=== PATIENT | female | born 1985 | race Caucasian/White ===

== ENCOUNTER 2018-08-12 07:55 | Inpatient (IN) | payer BC ==
--- NOTE | 2018-08-11 17:26 | PCM.LDHP ---
L&D History of Present Illness - General Date of Service: 08/12/18 Admit Problem/Dx: Admission Diagnosis/Problem Admission Diagnosis/Problem 08/11/18 17:05 Rosa is a 33-year-old 3 para 2002 female who is admitted on 2018 for elective induction of labor. Source of Information: Patient History Limitations: Reports: No Limitations - History of Present Illness Introduction:: The patient is a 33-year-old 3 para 2002 white female who is admitted for elective induction of labor. Her GIANNA is 08/17/2018 as determined by an ultrasound done at 7-0/7 weeks. It is supported by 3 other ultrasounds done on , 04/12/2018 and 06/03/2018. Cervix on last evaluation clinic was 3 cm, 90 % effaced, very soft, -2 station and mid position. Baby is in cephalic presentation. She's had good activity. Discussion is held patient has 2 artificial rupture membranes/Pitocin induction of labor. The procedure, risks, benefits, alternatives of care including allowing natural onset of labor all discussed with patient. She appears to understand and wishes to proceed. 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 Patient's last menstrual period was unknown. She had menarche at age 14. Cycles are somewhat irregular. Her delivery was included the followin. Female infant born 02/21/2010 at 41 weeks gestational age18 hours labor8 lbs. 10 oz.back extraction deliveryepiduralbaby's name is Katie. 2. Female on 02/08/201538-2/7 weeks gestational age7 lbs. 13 oz.spontaneous vaginal delivery. course: Patient was seen early in the at approximately 0/7 weeks gestational age. She had routine care. Her weight gain during the course of as well as from 104.2 pounds up to 136 pounds for 32 pound weight gain. Fundal height growth was appropriate. Vital signs remained stable throughout the course. Patient has had some anxiety during the course of but this is manageable. Choroid plexus initially seen on first anatomy ultrasound by the end of . She declined genetic testing. She declined flu shot. She desires epidural in labor and delivery. Group B strep is positive. She is candidate for antibiotic prophylaxis in labor and delivery. Hemoglobin A1c was normal at 5.1%. Patient refused 3-hour GTT. The lids were low early in the but on last evaluation there were 202,000. Patient had an abnormal Pap smear with low-grade squamous intraepithelial lesion. Colposcopy was performed. No biopsies were obtained. Plan is to evaluate after . Laboratory testing and shows blood to be a positive. Antibody screen is negative. First hemoglobin was 12.2 g/dL. Platelets were 167,000. Pap smear showed low-grade squamous intraepithelial lesion. Rubella titer showed immune status. RPR is nonreactive. Hepatitis B and HIV assays are both negative. Second trimester labs showed a 1 hour GTT of 132. Patient declined 3 or gtt. Platelets at that time 151. Platelet assessment on 07/27/2018 was 202, 000. Group B strep screen was positive. Allergies: None. Medications: 1. Sertraline 50 mg 1 by mouth Q OD 2. vitamins 1 daily Past medical history: 1. Normal spontaneous vaginal delivery 2 2. History of frequent UTIs 3. History of kidney stones 4. History of anxiety on meds Past surgical history: Unremarkable Family history daughter with patent material 6. 3/2 siblings uncertain health history. Mother has had some mini strokes. She is diet-controlled diabetic. She also has hypertension and hyperlipidemia. Father is healthy but patient doesn't know his full medical status. Maternal grandmother with type 1 diabetes secondary to stroke. Maternal grandfather deceasedcause unknown. Paternal grandmother unknown.Paternal grandfather causes unknown. Patient reports one maternal aunt with lupus. She does not know of any anesthesia, bleeding, , blood clotting problems noted in the family. Social history: Patient is . 's name is Hema Nunes. She does not use any significant most alcohol, drugs or tobacco. They live in [place]. She is a high school graduate. She is a [id number]-[id number] mom. Review of systems: In general patient has no complaints. Skin: Negative Lungs: No infectious symptoms or shortness of breath Cardiovascular: No chest pain or exercise intolerance Breasts: No lumps, changes in size, pain, dimpling, discharge or axillary or supraclavicular concerns. GI: Negative : Negative. Normal body habitus changes . Baby has been active. Some contractions noted last evening Musculoskeletal: Negative Neurological: Negative In general the patient is well-developed, well-nourished, pleasant female of stated age in no acute distress. Skin is warm dry without lesions. HEENT, neck and back within normal limits. Lungs are clear with good breath sounds in all lung bhat. Cardiovascular exam shows regular and rhythm without murmurs. Abdomen is consistent with term . Baby in vertex presentation by ultrasound and Kel maneuver. Uterus is soft, nontender. No inguinal lymphadenopathy or hernias are noted. Genital as per history of present illness Extremities and neurological exam are grossly within normal limits. Bedside transabdominal ultrasound is done because head is not felt to be nestled against the cervix well. Baby is in vertex presentation but has a positive pelvis and hand is front of the head. It appears to be amenable to Pitocin stimulation uterus to bring the head down. - Related Data Allergies/Adverse Reactions: Allergies Allergy/AdvReac Type Severity Reaction Status Date / Time No Known Allergies Allergy Verified 02/07/15 15:48 Home Medications: Home Meds Sertraline [Zoloft] 100 mg PO DAILY 08/12/18 [History] Past Medical History - Past Health History Medical/Surgical History: Denies Medical/Surgical History Other Genitourinary History: HX of kidney stones H&P Review of Systems - Review of Systems: Review Of Systems: See Below L&D Exam - Exam Exam: See Below - Patient Data Result Diagrams: 08/12/18 08:50 Problem List Initiated/Reviewed/Updated: Yes Assessment/Plan Comment:: 1. 39-3/7 week intrauterine , admitted for elective induction of labor 2. Group B strep positive status. Patient candidate for ampicillin prophylaxis in labor and delivery 3. Desires epidural in labor and delivery 4. History of previously decreased platelets now normal processes (202,000) on last evaluation 07/27/2018. 5. Patient plans to breast-feed 6. Rubella immune 7. RPR nonreactive Plan: 1. As the baby's head is not well engaged and pelvis will initiate Pitocin, bring the baby's head down and then do artificial rupture membranes augmentation. Procedures discussed with patient. She agrees to proceed. 2. Ampicillin reflexes per protocol for group B strep positive status. 3. Support nursing decision 4. Routine labor care.
[2018-08-12] MEDS ORDERED: Nalbuphine 20 MG/ML 1 ML Syringe IVPUSH PRN (08:42)
[2018-08-12] MEDS ORDERED: Ondansetron 4 MG/2 ML SDV IVPUSH PRN (08:42)
[2018-08-12] MEDS ORDERED: Sodium Chloride 0.9% 10 ML Syringe FLUSH PRN (08:42)
[2018-08-12] MEDS ORDERED: Lidocaine 1% 50 ML MDV INJECT ONE (08:42)
[2018-08-12] MEDS ORDERED: diphenhydrAMINE 50 MG/ML SDV IVPUSH PRN (08:43)
[2018-08-12] MEDS ORDERED: fentaNYL 100 MCG/2 ML SDV EPIDUR PRN (08:43)
[2018-08-12] MEDS ORDERED: ePHEDrine 50 MG/ML SDV IVPUSH PRN (08:43)
[2018-08-12] MEDS ORDERED: Oxytocin/Lactated Ringers 10 UNIT/1,000 ML BAG IV SCH ×2 (08:45)
[2018-08-12] MEDS ORDERED: Bupivacaine/fentaNYL/NS 100 ML Bag EPIDUR SCH (08:45)
[2018-08-12] MEDS ORDERED: Ampicillin 2 GM AdvVial IV ONE (08:56)
[2018-08-12] MEDS ORDERED: Sodium Chloride 0.9% 100 ML ONE (08:57)
[2018-08-12] MEDS ORDERED: fentaNYL/Bupivacaine-NS 2 MCG/ML-0.125%/PF 100 ML Bag EP SCH (08:59)
[2018-08-12] MEDS ORDERED: Ampicillin 2 GM in Sodium Chloride 0.9% 100 ML IV ONE (09:00)
[2018-08-12] MEDS: Lactated Ringers 1,000 ML IV SCH ×2 (09:54→12:07)
--- NOTE | 2018-08-12 12:02 | PCM.PREANE ---
Preanesthetic Assessment - Anesthesia/Transfusion/Family Hx Anesthesia History: Prior Anesthesia Without Reaction Family History of Anesthesia Reaction: No Transfusion History: No Prior Transfusion(s) - Review of Systems General: Fatigue Pulmonary: No Symptoms Cardiovascular: No Symptoms Gastrointestinal: Abdominal Pain (labor contractions) Neurological: No Symptoms Other: Reports: Anxiety - Physical Assessment Pulse: 66 O2 Sat by Pulse Oximetry: 97 Respiratory Rate: 14 Blood Pressure: 123/88 Temperature: 36.3 C Vital Signs: Last Vital Signs Temp 35.9 C 08/12/18 08:35 Pulse 66 08/12/18 08:35 Resp 14 08/12/18 08:35 BP 123/83 08/12/18 08:35 Pulse Ox Height: 1.63 m Weight: 62.46 kg ASA Class: 2 Mental Status: Alert & Oriented x3 Airway Class: Mallampati = 1 Dentition: Reports: Normal Dentition Thyro-Mental Finger Breadths: 3 Mouth Opening Finger Breadths: 3 ROM/Head Extension: Full Lungs: Clear to Auscultation, Normal Respiratory Effort Cardiovascular: Regular Rate, Regular Rhythm - Lab Values: Laboratory Last Values WBC 11.33 K/mm3 (3.98-10.04) H 08/12/18 08:50 RBC 4.32 M/mm3 (3.98-5.22) 08/12/18 08:50 Hgb 10.8 gm/L (11.2-15.7) L 08/12/18 08:50 Hct 34.2 % (34.1-44.9) 08/12/18 08:50 MCV 79.2 fl (79.4-94.8) L 08/12/18 08:50 MCH 25.0 pg (25.6-32.2) L 08/12/18 08:50 MCHC 31.6 g/dl (32.2-35.5) L 08/12/18 08:50 RDW Std Deviation 42.5 fL (36.4-46.3) 08/12/18 08:50 Plt Count 197 K/mm3 (182-369) 08/12/18 08:50 MPV 11.7 fl (9.4-12.3) 08/12/18 08:50 Neut % (Auto) 84.8 % (34.0-71.1) H 08/12/18 08:50 Lymph % (Auto) 10.5 % (19.3-51.7) L 08/12/18 08:50 [place] % (Auto) 4.0 % (4.7-12.5) L 08/12/18 08:50 Eos % (Auto) 0.2 (0.7-5.8) L 08/12/18 08:50 Baso % (Auto) 0.2 % (0.1-1.2) 08/12/18 08:50 Neut # (Auto) 9.62 K/mm3 (1.56-6.13) H 08/12/18 08:50 Lymph # (Auto) 1.19 K/mm3 (1.18-3.74) 08/12/18 08:50 [place] # (Auto) 0.45 K/mm3 (0.24-0.36) H 08/12/18 08:50 Eos # (Auto) 0.02 K/mm3 (0.04-0.36) L 08/12/18 08:50 Baso # (Auto) 0.02 K/mm3 (0.01-0.08) 08/12/18 08:50 - Allergies Allergies/Adverse Reactions: Allergies Allergy/AdvReac Type Severity Reaction Status Date / Time No Known Allergies Allergy Verified 02/07/15 15:48 - Anesthesia Plan Pre-Op Medication Ordered: None - Acknowledgements Anesthesia Type Planned: Epidural Pt an Appropriate Candidate for the Planned Anesthesia: Yes Alternatives and Risks of Anesthesia Discussed w Pt/Guardian: Yes Pt/Guardian Understands and Agrees with Anesthesia Plan: Yes PreAnesthesia Questionnaire - Past Health History Medical/Surgical History: Denies Medical/Surgical History Gastrointestinal History: Reports: GERD Other Genitourinary History: HX of kidney stones 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: Endocrine/Metabolic History: Reports: Other (See Below) Other Endocrine/Metabolic History: Intermittent episodes of hypoglycemia per patient Hematologic History: Reports: Anemia - Past Surgical History Female Surgical History: Reports: None Endocrine Surgical History: Reports: None - SUBSTANCE USE Smoking Status *Q: Never Smoker Second Hand Smoke Exposure: No Recreational Drug Use History: No - HOME MEDS Home Medications: Home Meds Sertraline [Zoloft] 100 mg PO DAILY 08/12/18 [History] - CURRENT (IN HOUSE) MEDS Current Meds: Current Medications Diphenhydramine HCl (Benadryl) 25 mg IVPUSH Q6H PRN PRN Reason: Itching Ephedrine Sulfate (Ephedrine Sulfate) 5 mg IVPUSH ASDIRECTED PRN PRN Reason: HYPOTENTSION Fentanyl (Sublimaze) 100 mcg EPIDUR Q3H PRN PRN Reason: Pain Last Admin: 08/12/18 11:53 Dose: 100 mcg Fentanyl/Bupivacaine HCl (Nqnjrlhg-Lyhik-Hy 2 Mcg/Ml-0.125%) 100 ml EP ASDIRECTED MIESHA Last Admin: 08/12/18 11:54 Dose: 100 ml Ampicillin Sodium 1 gm/ Sodium (Chloride) 100 mls @ 200 mls/hr IV Q4H MIESHA Lactated Ringer's (Ringers, Lactated) 1,000 mls @ 100 mls/hr IV ASDIRECTED MIESHA Last Admin: 08/12/18 09:54 Dose: 100 mls/hr Oxytocin/Lactated Ringer's (Pitocin In Lr 10 Units/1,000 Ml) 10 unit in 1,000 mls @ 12 mls/hr IV TITRATE MIESHA; Protocol Last Titration: 08/12/18 10:45 Dose: 6 munits/min, 36 mls/hr Oxytocin/Lactated Ringer's (Pitocin In Lr 10 Units/1,000 Ml) 10 unit in 1,000 mls @ 100 mls/hr IV .CONTINUOUS MIESHA; Protocol Nalbuphine HCl (Nubain) 10 mg IVPUSH Q2H PRN PRN Reason: pain Ondansetron HCl (Zofran) 4 mg IVPUSH Q4H PRN PRN Reason: Nausea/Vomiting Sodium Chloride (Saline Flush) 10 ml FLUSH ASDIRECTED PRN PRN Reason: Keep Vein Open Discontinued Medications Ampicillin Sodium (Ampicillin) Confirm Administered Dose 4 gm IV .STK-MED ONE Stop: 08/12/18 08:57 Fentanyl/Bupivacaine HCl (Fentanyl/Bupivacaine/Ns 2 Mcg-0.125% 100 Ml) 100 ml EPIDUR ASDIRECTED MIESHA Ampicillin Sodium 2 gm/ Sodium (Chloride) 100 mls @ 200 mls/hr IV ONETIME ONE Stop: 08/12/18 09:29 Last Admin: 08/12/18 09:01 Dose: 200 mls/hr Sodium Chloride (Normal Saline) Confirm Administered Dose 100 mls @ as directed .ROUTE .STK-MED ONE Stop: 08/12/18 08:58 Lidocaine HCl (Xylocaine 1%) 50 ml INJECT ONETIME ONE Stop: 08/12/18 08:43
[2018-08-12] MEDS ORDERED: Ampicillin 1 GM in Sodium Chloride 0.9% 100 ML IV SCH (13:00)
--- NOTE | 2018-08-12 13:17 | PCM.SN ---
- Free Text/Narrative Note: Delivery note: Rosa is a 33-year-old 3 now para 3003 female who is admitted this a.m. for elective induction of labor she underwent Pitocin induction with artificial rupture membranes augmentation. She progressed quickly to complete cervical dilation. At 1238 hrs. she had one contraction with which she pushed and delivered a viable, zelaya, female with a weight of 3020 g (6 lbs. 11 oz.), and at our of 8 and 9 and length of 19.5 inches. The cord was allowed to pulsate 1 minute and then was clamped 2 and cut by the baby's father. Baby was placed on mom's abdomen. Nose and mouth were bulb suctioned. Cord blood was obtained. The patient received Pitocin IV facilitate increase uterine tone and reduce risk of bleeding. The perineum was noted to be intact and no sutures were necessary. The placenta delivered at 1243 hrs. in a [place] presentation. It appeared intact and complete and was discarded per patient desire. Umbilical cord had 3 vessels. Estimated blood loss was 100 mL. Patient plans to breast-feed. Condition: Good
[2018-08-12] MEDS ORDERED: Witch Hazel Medicated Pads 100/Jar TOP PRN (14:32)
[2018-08-12] MEDS ORDERED: Docusate Sodium 100 MG Cap PO PRN (14:32)
[2018-08-12] MEDS ORDERED: Lanolin 100% Cream 7 GM Tube TOP PRN (14:32)
[2018-08-12] MEDS ORDERED: Benzocaine/Menthol 20%-0.5% Spray 56 GM Canister TOP PRN (14:32)
[2018-08-12] MEDS ORDERED: Acetaminophen 325 MG Tab PO PRN (14:32)
[2018-08-12] MEDS: Ibuprofen 600 MG Tab PO PRN ×2 (17:03→22:38)
[2018-08-12] MEDS ORDERED: Bupivacaine 0.25% 10 ML SDV ONE (22:00)
[2018-08-13] MEDS: Ibuprofen 600 MG Tab PO PRN ×4 (04:05→22:05)
--- NOTE | 2018-08-13 08:48 | PCM.PNPP ---
- General Info Date of Service: 08/13/18 Functional Status: Reports: Pain Controlled - Review of Systems General: Reports: No Symptoms HEENT: Reports: No Symptoms Pulmonary: Reports: No Symptoms Cardiovascular: Reports: No Symptoms Gastrointestinal: Reports: No Symptoms Genitourinary: Reports: No Symptoms Musculoskeletal: Reports: No Symptoms Skin: Reports: No Symptoms Neurological: Reports: No Symptoms Psychiatric: Reports: No Symptoms - General Info Date of Service: 08/13/18 - Patient Data Vital Signs - Most Recent: Last Vital Signs Temp 36.6 C 08/13/18 04:08 Pulse 73 08/13/18 04:08 Resp 14 08/13/18 04:08 BP 120/74 08/13/18 04:08 Pulse Ox 100 08/13/18 04:08 Weight - Most Recent: 62.46 kg I&O - Last 24 Hours: Intake & Output 08/12/18 08/13/18 08/13/18 22:59 06:59 14:59 Intake Total 1000 Output Total 350 Balance 650 Lab Results - Last 24 Hours: Laboratory Results - last 24 hr 08/12/18 Range/Units 08:50 WBC 11.33 H (3.98-10.04) K/mm3 RBC 4.32 (3.98-5.22) M/mm3 Hgb 10.8 L (11.2-15.7) gm/L Hct 34.2 (34.1-44.9) % MCV 79.2 L (79.4-94.8) fl MCH 25.0 L (25.6-32.2) pg MCHC 31.6 L (32.2-35.5) g/dl RDW Std Deviation 42.5 (36.4-46.3) fL Plt Count 197 (182-369) K/mm3 MPV 11.7 (9.4-12.3) fl Neut % (Auto) 84.8 H (34.0-71.1) % Lymph % (Auto) 10.5 L (19.3-51.7) % [place] % (Auto) 4.0 L (4.7-12.5) % Eos % (Auto) 0.2 L (0.7-5.8) Baso % (Auto) 0.2 (0.1-1.2) % Neut # (Auto) 9.62 H (1.56-6.13) K/mm3 Lymph # (Auto) 1.19 (1.18-3.74) K/mm3 [place] # (Auto) 0.45 H (0.24-0.36) K/mm3 Eos # (Auto) 0.02 L (0.04-0.36) K/mm3 Baso # (Auto) 0.02 (0.01-0.08) K/mm3 Med Orders - Current: Current Medications Acetaminophen (Tylenol) 650 mg PO Q4H PRN PRN Reason: mild pain or fever Benzocaine/Menthol (Dermoplast Pain Relief Mallory) 0 gm TOP ASDIRECTED PRN PRN Reason: Perineal Comfort Measure Docusate Sodium (Colace) 100 mg PO BID PRN PRN Reason: Constipation Emollient Ointment (Lansinoh Hpa) 0 gm TOP ASDIRECTED PRN PRN Reason: Sore Nipples Ibuprofen (Motrin) 600 mg PO Q4H PRN PRN Reason: Mild pain or fever Last Admin: 08/13/18 04:05 Dose: 600 mg Prenat Multivit/[place]/Iron/Folic Ac ( Plus Iron) 1 each PO DAILY [facility] Sertraline HCl (Zoloft) 50 mg PO DAILY [facility] [place] (Tucks) 1 pad TOP ASDIRECTED PRN PRN Reason: Hemorrhoid pain Discontinued Medications Ampicillin Sodium (Ampicillin) Confirm Administered Dose 4 gm IV .STK-MED ONE Stop: 08/12/18 08:57 Last Admin: 08/12/18 17:27 Dose: Not Given Diphenhydramine HCl (Benadryl) 25 mg IVPUSH Q6H PRN PRN Reason: Itching Ephedrine Sulfate (Ephedrine Sulfate) 5 mg IVPUSH ASDIRECTED PRN PRN Reason: HYPOTENTSION Fentanyl (Sublimaze) 100 mcg EPIDUR Q3H PRN PRN Reason: Pain Last Admin: 08/12/18 11:53 Dose: 100 mcg Fentanyl/Bupivacaine HCl (Fentanyl/Bupivacaine/Ns 2 Mcg-0.125% 100 Ml) 100 ml EPIDUR ASDIRECTED [facility] Fentanyl/Bupivacaine HCl (Viomynuq-Xbmsc-Rq 2 Mcg/Ml-0.125%) 100 ml EP ASDIRECTED [facility] Last Admin: 08/12/18 11:54 Dose: 100 ml Ampicillin Sodium 2 gm/ Sodium (Chloride) 100 mls @ 200 mls/hr IV ONETIME ONE Stop: 08/12/18 09:29 Last Admin: 08/12/18 09:01 Dose: 200 mls/hr Ampicillin Sodium 1 gm/ Sodium (Chloride) 100 mls @ 200 mls/hr IV Q4H MIESHA Last Admin: 08/12/18 17:28 Dose: Not Given Lactated Ringer's (Ringers, Lactated) 1,000 mls @ 100 mls/hr IV ASDIRECTED MIESHA Last Admin: 08/12/18 12:07 Dose: 100 mls/hr Oxytocin/Lactated Ringer's (Pitocin In Lr 10 Units/1,000 Ml) 10 unit in 1,000 mls @ 12 mls/hr IV TITRATE MIESHA; Protocol Last Titration: 08/12/18 10:45 Dose: 6 munits/min, 36 mls/hr Oxytocin/Lactated Ringer's (Pitocin In Lr 10 Units/1,000 Ml) 10 unit in 1,000 mls @ 100 mls/hr IV .CONTINUOUS MIESHA; Protocol Last Admin: 08/12/18 15:33 Dose: 100 mls/hr Sodium Chloride (Normal Saline) Confirm Administered Dose 100 mls @ as directed .ROUTE .STK-MED ONE Stop: 08/12/18 08:58 Last Admin: 08/12/18 17:27 Dose: Not Given Lidocaine HCl (Xylocaine 1%) 50 ml INJECT ONETIME ONE Stop: 08/12/18 08:43 Last Admin: 08/12/18 17:27 Dose: Not Given Nalbuphine HCl (Nubain) 10 mg IVPUSH Q2H PRN PRN Reason: pain Ondansetron HCl (Zofran) 4 mg IVPUSH Q4H PRN PRN Reason: Nausea/Vomiting Sodium Chloride (Saline Flush) 10 ml FLUSH ASDIRECTED PRN PRN Reason: Keep Vein Open - Interaction Support Person: - Recovery Exam Fundal Tone: Firm Fundal Level: At Umbilicus Fundal Placement: Midline Lochia Amount: Scant, Small Lochia Color: Rubra/Red Perineum Description: Intact, Minimal Bruising/Swelling Bladder Status: Nonpalpable Urinary Elimination: Voided - Exam General: Alert, Oriented HEENT: Pupils Equal Neck: Supple Lungs: Clear to Auscultation, Normal Respiratory Effort Cardiovascular: Regular Rate, Regular Rhythm GI/Abdominal Exam: Normal Bowel Sounds, Soft, Non-Tender, No Organomegaly, No Distention, No Abnormal Bruit, No Mass, Pelvis Stable Extremities: Normal Inspection, Normal Range of Motion, Non-Tender, No Pedal Edema, Normal Capillary Refill Skin: Warm, Dry, Intact Wound/Incisions: Healing Well Neurological: No New Focal Deficit Psy/Mental Status: Alert, Normal Affect, Normal Mood - Problem List Review Problem List Initiated/Reviewed/Updated: Yes - Assessment Assessment:: Term delivery. Only received one dose of antibiotics and therefore will need to stay until tomorrow. No other issues. Likely discharge tomorrow. - Plan Plan:: 1. 39-3/7 week intrauterine , admitted for elective induction of labor 2. Group B strep positive status. Patient candidate for ampicillin prophylaxis in labor and delivery 3. Desires epidural in labor and delivery 4. History of previously decreased platelets now normal processes (202,000) on last evaluation 07/27/2018. 5. Patient plans to breast-feed 6. Rubella immune 7. RPR nonreactive Plan: 1. As the baby's head is not well engaged and pelvis will initiate Pitocin, bring the baby's head down and then do artificial rupture membranes augmentation. Procedures discussed with patient. She agrees to proceed. 2. Ampicillin reflexes per protocol for group B strep positive status. 3. Support nursing decision 4. Routine labor care.
[2018-08-13] MEDS ORDERED: Sertraline 50 MG Tab PO SCH ×2 (09:00)
[2018-08-13] MEDS ORDERED: Prenatal Multivitamin with Calcium/Folic Acid/Iron Tab PO SCH (09:00)
[2018-08-13] MEDS ORDERED: DOXYLAMINE SUCCINATE PO SCH (21:00)
--- NOTE | 2018-08-13 23:12 | PCM48HPAN ---
Post Anesthesia Note - EVALUATION WITHIN 48HRS OF ANESTHETIC Vital Signs in Normal Range: Yes Patient Participated in Evaluation: Yes Respiratory Function Stable: Yes Airway Patent: Yes Cardiovascular Function Stable: Yes Hydration Status Stable: Yes Pain Control Satisfactory: Yes Nausea and Vomiting Control Satisfactory: Yes Mental Status Recovered: Yes
[2018-08-14] MEDS: Ibuprofen 600 MG Tab PO PRN (05:55)
--- NOTE | 2018-08-14 08:47 | PCM.DCSUM1 ---
Discharge Summary - Hospital Course Diagnosis: Stroke: No - Discharge Data Discharge Date: 08/14/18 Discharge Disposition: Home, Self-Care 01 Condition: Good - Patient Instructions Diet: Usual Diet as Tolerated Activity: No Strenuous Activities Driving: May Drive Today Showering/Bathing: May Shower Notify Provider of: Fever, Increased Pain, Swelling and Redness, Drainage, Nausea and/or Vomiting - Discharge Plan *PRESCRIPTION DRUG MONITORING PROGRAM REVIEWED*: No *COPY OF PRESCRIPTION DRUG MONITORING REPORT IN PATIENT JEAN-PIERRE: No Home Medications: Home Meds Sertraline [Zoloft] 100 mg PO DAILY 08/12/18 [History] - Discharge Summary/Plan Comment DC Time >30 min.: No - General Info Date of Service: 08/14/18 Functional Status: Reports: Pain Controlled - Review of Systems General: Reports: No Symptoms HEENT: Reports: No Symptoms Pulmonary: Reports: No Symptoms Cardiovascular: Reports: No Symptoms Gastrointestinal: Reports: No Symptoms Genitourinary: Reports: No Symptoms Musculoskeletal: Reports: No Symptoms Skin: Reports: No Symptoms Neurological: Reports: No Symptoms Psychiatric: Reports: No Symptoms - Patient Data Vitals - Most Recent: Last Vital Signs Temp 36.7 C 08/14/18 05:30 Pulse 58 L 08/14/18 05:22 Resp 17 08/14/18 05:30 BP 109/74 08/14/18 05:22 Pulse Ox 100 08/14/18 05:22 Weight - Most Recent: 62.46 kg Med Orders - Current: Current Medications Acetaminophen (Tylenol) 650 mg PO Q4H PRN PRN Reason: mild pain or fever Benzocaine/Menthol (Dermoplast Pain Relief [place]) 0 gm TOP ASDIRECTED PRN PRN Reason: Perineal Comfort Measure Docusate Sodium (Colace) 100 mg PO BID PRN PRN Reason: Constipation Last Admin: 08/13/18 13:36 Dose: 100 mg Emollient Ointment (Lansinoh Hpa) 0 gm TOP ASDIRECTED PRN PRN Reason: Sore Nipples Last Admin: 08/14/18 05:54 Dose: 1 tube Ibuprofen (Motrin) 600 mg PO Q4H PRN PRN Reason: Mild pain or fever Last Admin: 08/14/18 05:55 Dose: 600 mg Doxylamine Succinate (10 Mg Tab Ptom) 0 each PO BEDTIME MIEHSA Last Admin: 08/13/18 21:08 Dose: 2 each Sertraline 100 Mg (Tab Ptom) 0 each PO BEDTIME MIESHA Last Admin: 08/13/18 21:11 Dose: 1 each Prenat Multivit/[place]/Iron/Folic Ac ( Plus Iron) 1 each PO DAILY MIESHA Last Admin: 08/13/18 09:10 Dose: 1 each Tony Dalal (Tucks) 1 pad TOP ASDIRECTED PRN PRN Reason: Hemorrhoid pain Discontinued Medications Ampicillin Sodium (Ampicillin) Confirm Administered Dose 4 gm IV .STK-MED ONE Stop: 08/12/18 08:57 Last Admin: 08/12/18 17:27 Dose: Not Given Diphenhydramine HCl (Benadryl) 25 mg IVPUSH Q6H PRN PRN Reason: Itching Ephedrine Sulfate (Ephedrine Sulfate) 5 mg IVPUSH ASDIRECTED PRN PRN Reason: HYPOTENTSION Fentanyl (Sublimaze) 100 mcg EPIDUR Q3H PRN PRN Reason: Pain Last Admin: 08/12/18 11:53 Dose: 100 mcg Fentanyl/Bupivacaine HCl (Fentanyl/Bupivacaine/Ns 2 Mcg-0.125% 100 Ml) 100 ml EPIDUR ASDIRECTED MIESHA Fentanyl/Bupivacaine HCl (Nqrjxvcu-Endyc-Vo 2 Mcg/Ml-0.125%) 100 ml EP ASDIRECTED MIESHA Last Admin: 08/12/18 11:54 Dose: 100 ml Ampicillin Sodium 2 gm/ Sodium (Chloride) 100 mls @ 200 mls/hr IV ONETIME ONE Stop: 08/12/18 09:29 Last Admin: 08/12/18 09:01 Dose: 200 mls/hr Ampicillin Sodium 1 gm/ Sodium (Chloride) 100 mls @ 200 mls/hr IV Q4H MIESHA Last Admin: 08/12/18 17:28 Dose: Not Given Lactated Ringer's (Ringers, Lactated) 1,000 mls @ 100 mls/hr IV ASDIRECTED MIESHA Last Admin: 08/12/18 12:07 Dose: 100 mls/hr Oxytocin/Lactated Ringer's (Pitocin In Lr 10 Units/1,000 Ml) 10 unit in 1,000 mls @ 12 mls/hr IV TITRATE MIESHA; Protocol Last Titration: 08/12/18 10:45 Dose: 6 munits/min, 36 mls/hr Oxytocin/Lactated Ringer's (Pitocin In Lr 10 Units/1,000 Ml) 10 unit in 1,000 mls @ 100 mls/hr IV .CONTINUOUS MIESHA; Protocol Last Admin: 08/12/18 15:33 Dose: 100 mls/hr Sodium Chloride (Normal Saline) Confirm Administered Dose 100 mls @ as directed .ROUTE .STK-MED ONE Stop: 08/12/18 08:58 Last Admin: 08/12/18 17:27 Dose: Not Given Lidocaine HCl (Xylocaine 1%) 50 ml INJECT ONETIME ONE Stop: 08/12/18 08:43 Last Admin: 08/12/18 17:27 Dose: Not Given Nalbuphine HCl (Nubain) 10 mg IVPUSH Q2H PRN PRN Reason: pain Ondansetron HCl (Zofran) 4 mg IVPUSH Q4H PRN PRN Reason: Nausea/Vomiting Sertraline 100 Mg (Tab Ptom) 0 each PO DAILY MIESHA Sertraline HCl (Zoloft) 50 mg PO DAILY MIESHA Sertraline HCl (Zoloft) 100 mg PO DAILY MIESHA Sodium Chloride (Saline Flush) 10 ml FLUSH ASDIRECTED PRN PRN Reason: Keep Vein Open - Exam General: Reports: Alert, Oriented HEENT: Reports: Pupils Equal, Pupils Reactive, EOMI, Mucous Membr. Moist/[place] Neck: Reports: Supple Lungs: Reports: Clear to Auscultation, Normal Respiratory Effort Cardiovascular: Reports: Regular Rate, Regular Rhythm GI/Abdominal Exam: Normal Bowel Sounds, Soft, Non-Tender, No Organomegaly, No Distention, No Abnormal Bruit, No Mass, Pelvis Stable Rectal (Female) Exam: Normal Exam Back Exam: Reports: Normal Inspection, Full Range of Motion Extremities: Normal Inspection, Normal Range of Motion, Non-Tender, No Pedal Edema, Normal Capillary Refill Skin: Reports: Warm, Dry, Intact Wound/Incisions: Reports: Healing Well Neurological: Reports: No New Focal Deficit Psy/Mental Status: Reports: Alert, Normal Affect, Normal Mood
[2018-08-14] MEDS ORDERED: Calcium Carbonate 500 MG Tab.Chew PO PRN (08:48)
[2018-08-14 10:51] VITALS: BP 118/74
== END 2018-08-14 12:15 | disposition home or self-care (01) | DRG 560 ==
LOC: JD.OB 07:55 → UNDOADMOB 07:55 → JD.OB 12:38 → OBSVTOIN 12:38 → JD.OB 12:39
PROVIDERS: ADMIT Obstetrics & Gynecology; ATTEND Obstetrics & Gynecology
PROC: 3E033VJ Introduction of Other Hormone into Peripheral Vein, Percutaneous Approach (ICD-10-PCS; principal; 2018-08-12)
PROC: 10907ZC Drainage of Amniotic Fluid, Therapeutic from Products of Conception, Via Natural or Artificial Opening (ICD-10-PCS; principal; 2018-08-12)
PROC: 10E0XZZ Delivery of Products of Conception, External Approach (ICD-10-PCS; principal; 2018-08-12)
PROC: 6A550ZT Pheresis of Cord Blood Stem Cells, Single (ICD-10-PCS; principal; 2018-08-12)
PROC: 00HU33Z Insertion of Infusion Device into Spinal Canal, Percutaneous Approach (ICD-10-PCS; 2018-08-12)
PROC: 3E0R3BZ Introduction of Anesthetic Agent into Spinal Canal, Percutaneous Approach (ICD-10-PCS; 2018-08-12)
DX: O99.824 Streptococcus B carrier state complicating childbirth (principal); O99.344 Other mental disorders complicating childbirth; F41.9 Anxiety disorder, unspecified; Z37.0 Single live birth; Z3A.39 39 weeks gestation of pregnancy; O99.62 Diseases of the digestive system complicating childbirth; K21.9 Gastro-esophageal reflux disease without esophagitis; Z87.440 Personal history of urinary (tract) infections; Z87.442 Personal history of urinary calculi
CPT/HCPCS: 36415; 59025; 59409; 85025; 86592; A9270-GY; J0290; J2590; J3010; J3490; J7030; J7120

== ENCOUNTER 2018-12-31 14:57 | Emergency (ER) | payer BC ==
[2018-12-31 15:07] VITALS: BP 125/83
[2018-12-31] MEDS: LORazepam 2 MG/ML SDV IVPUSH ONE (15:12)
[2018-12-31] MEDS: Sodium Chloride 0.9% 1,000 ML IV SCH (15:13)
--- NOTE | 2018-12-31 16:24 | EDM.PDOC ---
ED HPI GENERAL MEDICAL PROBLEM - General Chief Complaint: Neurological Problem Stated Complaint: [facility] Time Seen by Provider: 12/31/18 15:01 Source of Information: Reports: Patient, EMS, Family History Limitations: Reports: Altered Mental Status - History of Present Illness INITIAL COMMENTS - FREE TEXT/NARRATIVE: The patient presents by [facility] for a seizure. The patient had a 30 second tonic clonic seizure that was witnessed by her . When EMS arrived they patient was post ictal and confused. She was combative. She had a baby in August and in September she had a seizure while driving to go shopping. She was with a friend and she was driving and she was not acting right so her friend had her truss puller helper and she had a tonic clonic seizure that lasted about 30 seconds. She saw Tracy Jackson in our clinic and she ordered an MRI that was normal. The patient was on zoloft at that time and she would not take int consistently. It was thought maybe that was the cause of her seizure. She is still not taking her zoloft consistently. She is not getting much sleep. She is breast feeding and her young child is not sleeping very well. Onset: Sudden Duration: Minutes: Location: Reports: Generalized Severity: Moderate Improves with: Reports: None Worsens with: Reports: None Associated Symptoms: Reports: No Other Symptoms Headache Pain Score (Numeric/FACES): 10 - Related Data Allergies Allergy/AdvReac Type Severity Reaction Status Date / Time No Known Allergies Allergy Verified 02/07/15 15:48 Home Meds: Home Meds Sertraline [Zoloft] 100 mg PO DAILY 08/12/18 [History] levETIRAcetam [Keppra] 250 mg PO BID #14 tablet 12/31/18 [Rx] levETIRAcetam [Keppra] 500 mg PO BID #60 tab 12/31/18 [Rx] Past Medical History - Past Health History Medical/Surgical History: Denies Medical/Surgical History Gastrointestinal History: Reports: GERD Other Genitourinary History: HX of kidney stones PAD HAND History: Reports: Psychiatric History: Reports: Depression Other Psychiatric History: zoloft prescribed by OB doctor Endocrine/Metabolic History: Reports: Other (See Below) Other Endocrine/Metabolic History: Intermittent episodes of hypoglycemia per patient Hematologic History: Reports: Anemia - Past Surgical History Female Surgical History: Reports: None Endocrine Surgical History: Reports: None Social & Family History - Family History Cardiac: Reports: Hypertension OBGYN: Reports: None Neurological: Reports: CVA Endocrine/Metabolic: Reports: Diabetes, type II - Tobacco Use Smoking Status *Q: Unknown Ever Smoked - Caffeine Use Caffeine Use: Reports: Other Other Caffeine Use: unknown - Recreational Drug Use Other Recreational Drug Type: unknown ED ROS GENERAL - Review of Systems Review Of Systems: See Below Constitutional: Reports: No Symptoms HEENT: Reports: No Symptoms Respiratory: Reports: No Symptoms Cardiovascular: Reports: No Symptoms Endocrine: Reports: No Symptoms GI/Abdominal: Reports: No Symptoms : Reports: No Symptoms Musculoskeletal: Reports: No Symptoms Skin: Reports: No Symptoms Neurological: Reports: Confusion - Physical Exam Exam: See Below Exam Limited By: Altered Mental Status General Appearance: Alert, No Apparent Distress Ears: Normal External Exam Throat/Mouth: Normal Inspection Head Exam: Atraumatic, Normocephalic Neck: Normal Inspection Respiratory/Chest: No Respiratory Distress, Lungs Clear, Normal Breath Sounds Cardiovascular: Regular Rate, Rhythm, No Edema, No Murmur GI/Abdominal: Soft, Non-Tender, No Organomegaly, No Mass Neuro Exam (Abbreviated): Alert, No Motor/Sensory Deficits, Confused Course - Vital Signs Last Recorded V/S: Last Vital Signs Temp 97.0 F 12/31/18 15:06 Pulse 72 12/31/18 15:06 Resp 14 12/31/18 15:06 BP 125/83 12/31/18 15:06 Pulse Ox 94 L 12/31/18 15:06 - Orders/Labs/Meds Orders: Active Orders 24 hr Category Date Time Status Cardiac Monitoring [RC] . DIRECTED Care 12/31/18 15:05 Active Peripheral IV Care [RC] . DIRECTED Care 12/31/18 15:06 Active Head wo Cont [CT] Stat Exams 12/31/18 15:06 Taken Sodium Chloride 0.9% [Normal Saline] 1,000 ml Med 12/31/18 15:15 Active IV ASDIRECTED Sodium Chloride 0.9% [Saline Flush] Med 12/31/18 15:05 Active 10 ml FLUSH ASDIRECTED PRN Peripheral IV Insertion Adult [OM.PC] Stat Oth 12/31/18 15:05 Ordered Medication Orders Sodium Chloride (Normal Saline) 1,000 mls @ 125 mls/hr IV ASDIRECTED MIESHA Last Admin: 12/31/18 15:13 Dose: 125 mls/hr Sodium Chloride (Saline Flush) 10 ml FLUSH ASDIRECTED PRN PRN Reason: Keep Vein Open Last Admin: 12/31/18 16:38 Dose: 10 ml Labs: Laboratory Tests 12/31/18 12/31/18 12/31/18 Range/Units 15:20 15:20 15:20 WBC 15.49 H (3.98-10.04) K/mm3 RBC 4.88 (3.98-5.22) M/mm3 Hgb 13.1 D (11.2-15.7) gm/L Hct 39.9 (34.1-44.9) % MCV 81.8 (79.4-94.8) fl MCH 26.8 (25.6-32.2) pg MCHC 32.8 (32.2-35.5) g/dl RDW Std Deviation 47.0 H (36.4-46.3) fL Plt Count 213 (182-369) K/mm3 MPV 11.7 (9.4-12.3) fl Neut % (Auto) 93.0 H (34.0-71.1) % Lymph % (Auto) 3.9 L (19.3-51.7) % [place] % (Auto) 2.7 L (4.7-12.5) % Eos % (Auto) 0 L (0.7-5.8) Baso % (Auto) 0.2 (0.1-1.2) % Neut # (Auto) 14.41 H (1.56-6.13) K/mm3 Lymph # (Auto) 0.60 L (1.18-3.74) K/mm3 [place] # (Auto) 0.42 H (0.24-0.36) K/mm3 Eos # (Auto) 0.00 L (0.04-0.36) K/mm3 Baso # (Auto) 0.03 (0.01-0.08) K/mm3 Manual Slide Review Not Reportable Sodium 139 (136-145) mEq/L Potassium 3.6 (3.5-5.1) mEq/L Chloride 103 (98-107) mEq/L Carbon Dioxide 20 L (21-32) mEq/L Anion Gap 19.6 H (5-15) BUN 21 H (7-18) mg/dL Creatinine 0.9 (0.55-1.02) mg/dL Est Cr Clr Drug Dosing 70.68 mL/min Estimated GFR (MDRD) > 60 (>60) mL/min BUN/Creatinine Ratio 23.3 H (14-18) Glucose 180 H (74-106) mg/dL Calcium 9.1 (8.5-10.1) mg/dL Magnesium 1.8 (1.8-2.4) mg/dl Total Bilirubin 0.7 (0.2-1.0) mg/dL AST 19 (15-37) U/L ALT 20 (14-59) U/L Alkaline Phosphatase 59 (46-116) U/L Total Protein 7.5 (6.4-8.2) g/dl Albumin 4.1 (3.4-5.0) g/dl Globulin 3.4 gm/dL Albumin/Globulin Ratio 1.2 (1-2) HCG, Qual Negative (NEGATIVE) Urine Color (Yellow) Urine Appearance (Clear) Urine pH (5.0-8.0) Ur Specific [place] (1.005-1.030) Urine Protein (Negative) Urine Glucose (UA) (Negative) Urine Ketones (Negative) Urine Occult Blood (Negative) Urine Nitrite (Negative) Urine Bilirubin (Negative) Urine Urobilinogen (0.2-1.0) Ur Leukocyte Esterase (Negative) Urine RBC (0-5) /hpf Urine WBC (0-5) /hpf Ur Epithelial Cells (0-5) /hpf Amorphous Sediment (NOT SEEN) /hpf Urine Bacteria (FEW) /hpf Urine Mucus (FEW) /hpf Urine Opiates Screen (HOOISR=195) Ur Buprenorphine Scrn (CUTOFF=10) Ur Oxycodone Screen (DUC1AF=835) Urine Methadone Screen (FTOVSI=485) Ur Propoxyphene Screen (FJKKCJ=315) Ur Barbiturates Screen (LFTITJ=343) Ur Tricyclics Screen (VTZRDX=648) Ur Phencyclidine Scrn (CUTOFF=25) Ur Amphetamine Screen (XRNVSB=917) U Methamphetamines Scrn (VPJIEI=435) U Benzodiazepines Scrn (MAQSVJ=073) U Cocaine Metab Screen (IUBIWQ=807) U Marijuana (THC) Screen (CUTOFF=50) Ethyl Alcohol 0.00 (0.00) gm% 12/31/18 12/31/18 Range/Units 15:55 15:55 WBC (3.98-10.04) K/mm3 RBC (3.98-5.22) M/mm3 Hgb (11.2-15.7) gm/L Hct (34.1-44.9) % MCV (79.4-94.8) fl MCH (25.6-32.2) pg MCHC (32.2-35.5) g/dl RDW Std Deviation (36.4-46.3) fL Plt Count (182-369) K/mm3 MPV (9.4-12.3) fl Neut % (Auto) (34.0-71.1) % Lymph % (Auto) (19.3-51.7) % [place] % (Auto) (4.7-12.5) % Eos % (Auto) (0.7-5.8) Baso % (Auto) (0.1-1.2) % Neut # (Auto) (1.56-6.13) K/mm3 Lymph # (Auto) (1.18-3.74) K/mm3 [place] # (Auto) (0.24-0.36) K/mm3 Eos # (Auto) (0.04-0.36) K/mm3 Baso # (Auto) (0.01-0.08) K/mm3 Manual Slide Review Sodium (136-145) mEq/L Potassium (3.5-5.1) mEq/L Chloride (98-107) mEq/L Carbon Dioxide (21-32) mEq/L Anion Gap (5-15) BUN (7-18) mg/dL Creatinine (0.55-1.02) mg/dL Est Cr Clr Drug Dosing mL/min Estimated GFR (MDRD) (>60) mL/min BUN/Creatinine Ratio (14-18) Glucose (74-106) mg/dL Calcium (8.5-10.1) mg/dL Magnesium (1.8-2.4) mg/dl Total Bilirubin (0.2-1.0) mg/dL AST (15-37) U/L ALT (14-59) U/L Alkaline Phosphatase (46-116) U/L Total Protein (6.4-8.2) g/dl Albumin (3.4-5.0) g/dl Globulin gm/dL Albumin/Globulin Ratio (1-2) HCG, Qual (NEGATIVE) Urine Color Yellow (Yellow) Urine Appearance Clear (Clear) Urine pH 6.5 (5.0-8.0) Ur Specific [place] 1.025 (1.005-1.030) Urine Protein 1+ H (Negative) Urine Glucose (UA) Negative (Negative) Urine Ketones 1+ H (Negative) Urine Occult Blood Negative (Negative) Urine Nitrite Negative (Negative) Urine Bilirubin Negative (Negative) Urine Urobilinogen 0.2 (0.2-1.0) Ur Leukocyte Esterase Negative (Negative) Urine RBC 0-5 (0-5) /hpf Urine WBC 0-5 (0-5) /hpf Ur Epithelial Cells 0-5 (0-5) /hpf Amorphous Sediment Few H (NOT SEEN) /hpf Urine Bacteria Few (FEW) /hpf Urine Mucus Few (FEW) /hpf Urine Opiates Screen Negative (GULYMZ=503) Ur Buprenorphine Scrn Negative (CUTOFF=10) Ur Oxycodone Screen Negative (EFD2SI=452) Urine Methadone Screen Negative (NQQDXU=431) Ur Propoxyphene Screen Negative (XXFVWE=847) Ur Barbiturates Screen Negative (UGMILT=326) Ur Tricyclics Screen Negative (ZVOEAC=958) Ur Phencyclidine Scrn Negative (CUTOFF=25) Ur Amphetamine Screen Negative (FRISYR=666) U Methamphetamines Scrn Negative (PPEADB=621) U Benzodiazepines Scrn Negative (LVYZAS=983) U Cocaine Metab Screen Negative (HKFPMJ=968) U Marijuana (THC) Screen Presumptive positive H (CUTOFF=50) Ethyl Alcohol (0.00) gm% Meds: Medications Generic Name Dose Route Start Last Admin Trade Name Freq PRN Reason Stop Dose Admin Sodium Chloride 1,000 mls @ 125 mls/hr 12/31/18 15:15 12/31/18 15:13 Normal Saline IV 125 mls/hr ASDIRECTED MIESHA Administration Sodium Chloride 10 ml 12/31/18 15:05 12/31/18 16:38 Saline Flush FLUSH 10 ml ASDIRECTED PRN Administration Keep Vein Open Discontinued Medications Generic Name Dose Route Start Last Admin Trade Name Freq PRN Reason Stop Dose Admin Levetiracetam 250 mg 12/31/18 18:00 12/31/18 18:32 Keppra PO 12/31/18 18:01 250 mg ONETIME ONE Administration Lorazepam 1 mg 12/31/18 15:06 12/31/18 15:12 Ativan IVPUSH 12/31/18 15:07 1 mg ONETIME ONE Administration - Re-Assessments/Exams Free Text/Narrative Re-Assessment/Exam: 12/31/18 17:48 I ordered an IV NS at 125mL/hr, ativan 1mg IV, labs, UA and a CT of her head. Her CT looks good. Her WBC was elevated at 15.49. Her anion gap was elevated at 19.6. Her glucose is elevated at 180. Her HCG is negative. Her urine drug screen is presumptive positive for marijuana. Her CT shows no acute intracranial abnormality. I called [facility] and talked with Dr Short the neurologist acute care occupational therapist and he said because this is her 3rd one I should start her on some keppra. I will start 250mg 2 times per day for 1 week and then 500mg 2 times per day. I will also order an out patient EEG and have her follow up with Dr Short. 12/31/18 18:38 I talked to the patient and he . They are aware of the plan. I will have her stop her zoloft but over a couple of weeks. She will rest here another hour or so. Departure - Departure Time of Disposition: 20:00 Disposition: Home, Self-Care 01 Condition: Good Clinical Impression: Seizure - Discharge Information *PRESCRIPTION DRUG MONITORING PROGRAM REVIEWED*: Not Applicable *COPY OF PRESCRIPTION DRUG MONITORING REPORT IN PATIENT JEAN-PIERRE: Not Applicable Prescriptions: levETIRAcetam [Keppra] 250 mg PO BID #14 tablet levETIRAcetam [Keppra] 500 mg PO BID #60 tab Referrals: PCP,None [Primary Care Provider] - Francis Short MD [Ordering Only Provider] - 1 Week Nichelle Pearson MD [Physician] - 1 Week Forms: ED Department Discharge Additional Instructions: Take the keppra 250mg 2 times per day for 1 week and then take the 500mg 2 times per day after that. Take the zoloft or sertraline every other day for 1 week and then every 3rd day for 2 weeks and then you can stop it. Try to get plenty of rest and avoid drinking alcohol. That can lower the seizure threshold and you are more prone to having seizures. Do not drive for 6 month. Avoid swimming or taking a bath by yourself incase you have a seizure. I have ordered an EEG for you. Someone from the hospital will call you with a time and day. Follow up with Dr Short a neurologist at [facility] in [place]. You may also follow up with Tracy Jackson in our clinic or Dr Pearson. Please return if you are worse. - My Orders Last 24 Hours: My Active Orders 12/31/18 15:05 Cardiac Monitoring [RC] . DIRECTED Sodium Chloride 0.9% [Saline Flush] 10 ml FLUSH ASDIRECTED PRN Peripheral IV Insertion Adult [OM.PC] Stat 12/31/18 15:06 Peripheral IV Care [RC] . DIRECTED Head wo Cont [CT] Stat 12/31/18 15:15 Sodium Chloride 0.9% [Normal Saline] 1,000 ml IV ASDIRECTED - Assessment/Plan Last 24 Hours: My Active Orders 12/31/18 15:05 Cardiac Monitoring [RC] . DIRECTED Sodium Chloride 0.9% [Saline Flush] 10 ml FLUSH ASDIRECTED PRN Peripheral IV Insertion Adult [OM.PC] Stat 12/31/18 15:06 Peripheral IV Care [RC] . DIRECTED Head wo Cont [CT] Stat 12/31/18 15:15 Sodium Chloride 0.9% [Normal Saline] 1,000 ml IV ASDIRECTED
[2018-12-31] MEDS: Sodium Chloride 0.9% 10 ML Syringe FLUSH PRN (16:38)
[2018-12-31] MEDS: levETIRAcetam 500 MG Tab PO ONE (18:32)
--- NOTE | 2019-01-02 10:17 | CT ---
Head CT Technique: Multiple axial sections through the brain were obtained. Intravenous contrast was not utilized. Comparison: Prior MRI brain dated 10/24/18. Findings: Ventricles along with basal cistern and sulci over the convexities are within normal limits for the patient's age. No abnormal parenchymal densities are seen. No evidence of intracranial hemorrhage. No midline shift or mass effect is seen. Bone window settings were reviewed which show no acute calvarial abnormality. Visualized sinuses are clear. Impression: 1. Nothing acute is appreciated on noncontrast head CT exam. Diagnostic code #1 I agree with preliminary report from [facility], finalized on 12/31/18, 6:19 PM Central Time
== END 2018-12-31 19:40 | disposition home or self-care (01) ==
LOC: JD.ED 14:57
DX: K02.9 Dental caries, unspecified (principal); F17.210 Nicotine dependence, cigarettes, uncomplicated; Z91.09 Other allergy status, other than to drugs and biological substances
CPT/HCPCS: 36415; 64400; 70450; 80053; 80306; 81001; 83735; 84703; 85025; 96361; 96374; 99285; A9270; G0480; J2060; J7040; 99284